=== PATIENT | male | born 1975 | race Caucasian/White ===

== ENCOUNTER 2017-09-17 12:30 | Outpatient (CLI) | payer MEDICAID ==
--- NOTE | 2017-09-17 20:56 | XRAY Report ---
EXAM: LUMBOSACRAL SPINE RADIOGRAPHY EXAM DATE: 09/17/2017 01:06 PM. CLINICAL HISTORY: CHRONIC LBP. COMPARISONS: None. TECHNIQUE: 3 views. FINDINGS: Alignment: Normal. No spondylolisthesis or scoliosis. Bones: 5 lumbar vertebrae. No fractures or bone lesions. Disks: Minimal disk space narrowing at L4-L5 and L5-S1. Other lumbar disk spaces well preserved. Facets: Mild degenerative changes at L4-L5 and L5-S1. Sacroiliac Joints: Unremarkable. Soft Tissues: Unremarkable. IMPRESSION: Mild lower lumbar degenerative changes. [facility] Referring Provider Line: [phone] SITE ID: [id number]
== END 2017-09-17 12:31 | disposition home or self-care (01) ==
LOC: DI 12:30
PROVIDERS: ATTEND Physician Assistant Medical
DX: M54.5 Low back pain (principal)
CPT/HCPCS: 72100

== ENCOUNTER 2018-07-10 12:07 | Outpatient (CLI) | payer MEDICAID | END 2018-07-10 12:08 | disposition home or self-care (01) | LOC: RT.N 12:07 | PROVIDERS: ATTEND Physician Assistant Medical | DX: Z79.899 Other long term (current) drug therapy (principal) | CPT/HCPCS: 93005 ==

== ENCOUNTER 2018-07-18 12:57 | Outpatient (CLI) | payer MEDICAID ==
[2018-07-18 13:22] LABS: BASOPHILS # (AUTO) 0.1 10^3/uL (0.0-0.1); BASOPHILS % (AUTO) 0.7 %; EOSINOPHILS # (AUTO) 0.1 10^3/uL (0.0-0.7); EOSINOPHILS % (AUTO) 1.7 %; HGB - HEMOGLOBIN 16.9 g/dL (14.0-18.0); LYMPHOCYTES # (AUTO) 2.3 10^3/uL (1.5-3.5); LYMPHOCYTES % (AUTO) 29.9 %; MEAN CORPUSCULAR HEMOGLOBIN 30.6 pg (27.0-31.0); MEAN CORPUSCULAR HGB CONC 33.3 g/dL (32.0-36.0); MEAN CORPUSCULAR VOLUME 91.7 fL (80.0-94.0); MEAN PLATELET VOLUME 8.9 fL (7.4-11.4); MONOCYTES # (AUTO) 0.7 10^3/uL (0.0-1.0); MONOCYTES % (AUTO) 9.2 %; NEUTROPHILS # (AUTO) 4.5 10^3/uL (1.5-6.6); NEUTROPHILS % (AUTO) 58.5 %; PLT - PLATELET COUNT 235 10^3/uL (130-450); RED BLOOD COUNT 5.53 10^6/uL (4.70-6.10); RED CELL DISTRIBUTION WIDTH 13.6 % (12.0-15.0); WHITE BLOOD COUNT 7.7 x10^3/uL (4.8-10.8)
== END 2018-07-18 12:58 | disposition home or self-care (01) ==
LOC: LAB 12:57
PROVIDERS: ATTEND Nurse Practitioner Psychiatric/Mental Health
DX: F25.1 Schizoaffective disorder, depressive type (principal)
CPT/HCPCS: 36415; 85025

== ENCOUNTER 2018-09-11 13:23 | Outpatient (CLI) | payer MEDICAID | END 2018-09-11 13:24 | disposition home or self-care (01) | LOC: SC 13:23 | PROVIDERS: ATTEND Internal Medicine Pulmonary Disease | DX: G47.10 Hypersomnia, unspecified (principal); R06.81 Apnea, not elsewhere classified; G47.8 Other sleep disorders; R41.89 Other symptoms and signs involving cognitive functions and awareness; R06.83 Snoring; E66.01 Morbid (severe) obesity due to excess calories; Z68.41 Body mass index [BMI] 40.0-44.9, adult; F17.210 Nicotine dependence, cigarettes, uncomplicated | CPT/HCPCS: 99203; 99212 ==

== ENCOUNTER 2018-10-10 19:29 | Outpatient (CLI) | payer MEDICAID | END 2018-10-10 19:30 | disposition home or self-care (01) | LOC: SC 19:29 | PROVIDERS: ATTEND Internal Medicine Pulmonary Disease | DX: G47.33 Obstructive sleep apnea (adult) (pediatric) (principal); G47.61 Periodic limb movement disorder | CPT/HCPCS: 95811 ==

== ENCOUNTER 2018-10-17 10:37 | Outpatient (CLI) | payer MEDICAID | END 2018-10-17 10:38 | disposition home or self-care (01) | LOC: SC 10:37 | PROVIDERS: ATTEND Nurse Practitioner Family | DX: G47.33 Obstructive sleep apnea (adult) (pediatric) (principal); G47.61 Periodic limb movement disorder | CPT/HCPCS: 99212; 99214 ==

== ENCOUNTER 2019-07-23 08:14 | Outpatient (CLI) | payer MEDICAID ==
--- NOTE | 2019-07-23 09:13 | SLEEP CARE CONSULTATION ---
Information from patient questionnaire entered by Sarah Calloway. I have reviewed and concur with the information entered by Sarah Calloway. This document represents the service I personally performed and the decisions made by me, Taylor Chicas, RN, MSN, [employer]. History of Present Illness Previous diagnosis: Very Severe, Obstructive Sleep Apnea-Hypopnea Syndrome AHI: 88.5 Reason for follow up: first compliance (set up 05/03/19), other (9 month fu) Equipment type: CPAP [facility] Mask style: Full face (F20) Mask brand: Resmed Backup mask available: No (Keep current mask when replaced as a spare ) Last cushion change: not since set up HPI additional information: There was a delay in getting set up . The first DME that prescription was sent to still had not set patient yet in November and his mother called and office staff here checked with DME to ensure all information there per progress note. Staff called again from here and [facility] was to call patient. This did not occur and patient mother called about 2 weeks later to transfer to [facility]. Then there was a delay from [facility] per progress notes and patient finally set up 05/03/19 per compliance report. CPAP Compliance Data - Data Reviewed with Patient Average duration of nightly device use: 7.25 (6.7 last 30) Compliance rate %: 83 (05/03-06/01)(47 for last 30) Current pressure setting (cmH2O): 17-20 Humidity settin Average residual AHI: 8.1 (3.3 last 30) Central apnea: 0.8 Obstructive apnea: 0.9 Hypopnea: 5.5 unknown Subjective Missed days of use due to: reports: other (mask leaks affecting CPAP use - stop ped using as reducing sleep ) Patient concerns: reports: air blowing in eyes (every night - affecting ability to go to sleep and maintain sleep. ), mask leak noise. denies: aerophagia, mask discomfort, condensation in mask/hose, dry mouth, nose, throat, epistaxis Observed to snore while using device: No Current pressure setting perceived as: too high On therapy, patient: reports: awakening more refreshed, being more awake and alert during the day, more rested overall Initial [place] Sleepiness Scale score: 11 Current [place] Sleepiness Scale score: 6 Allergies and Home Medications Known drug allergies: No Home medication list reviewed: Yes Allergy and home medication list: Abilify 20mg daily Seroquel 50mg daily Review of Systems Review of systems same as previous: Yes Physical Exam Blood Pressure: 136/100 (just smoked cigarette 30 minutes ago) Cuff size: long Heart Rate: 80 O2 Saturation: 96 Height: 6 ft 1 in Weight: 320 lb Weight change since last visit: gained 12 pounds Body Mass Index: 42.2 BMI Classification: Morbidly Obese Impression and Plan 1. Obstructive Sleep Apnea-Hypopnea Syndrome, very severe , with good treatment compliance the first 30 days but fell due to mask discomfort and leaks the last month. His residual AHI was elevated the first 30 days that appears to be due to large mask leaks. On CPAP therapy, the patient has better sleep quality and is more rested overall. Mask leaks can be reduced by washing mask daily instead of weekly. Changing mask cushions more frequently to improve mask seal and comfort but patient is only allowed one per 3 months . Additionally, mask leaks pred ominately from when patient sleeps on their side can be reduced by using a CPAP pillow. A CPAP pillow sample was shown. This and other styes can be purchased online. However, due to patient budget, he states he cannot afford so will modify one of his pillows. I also showed him how to adjust his mask slightly to reduce mask leaks into eyes. He states mask leaks start if pressure is raised above [id number]. So I will adjust pressure lower as well for comfort. In addition, he can buy a cloth eye mask to protect eyes until mask leaks controlled and use eye lubricant drops as needed. Also counseled to lose weight as it will increase apnea risk and CPAP pressure if continued as well as other medical problems. Portion control and health content discussed. A diet consult referral by PCP is advised. Patient's apnea severity and rationale for treatment to reduce apnea, improve sleep quality and reduce cardiovascular and cerebrovascular events was reviewed. I also reviewed the benefit of consistent device use of CPAP for hypertension, depression/anxiety. 2. Elevated Blood pressure. Today blood pressure was 136/100 initially with long cuff and later 132/100 with red large long cuff. He was counseled on the health risks of elevated blood pressure and advised to follow up with his PCP for further evaluation. He was also counseled on how his cigarette smoking can also increase his blood pressure. * * Change CPAP pressure to 16 cmH2O * Implement methods to reduce mask leaks and eye irritation. * Notify me if snoring with mask or feeling that the pressure is too much or too little * Attempt to lose weight * Follow up with PCP for further evaluation of elevated blood pressure / diet consultation. * Call this office if any problems using CPAP * Return for follow up in 2 months , or sooner if concerns arise Counseling Topics: Spare mask, Weight loss health impact, Discuss weight with PCP Time Spent with Patient (minutes): 40 I spent 100% of this visit face to face with the patient with greater than 50% of this was spent time counseling the patient and coordination of care.
[2019-07-23 09:14] VITALS: BP 136/100
== END 2019-07-23 08:15 | disposition home or self-care (01) ==
LOC: SC 08:14
PROVIDERS: ATTEND Nurse Practitioner Family
DX: G47.33 Obstructive sleep apnea (adult) (pediatric) (principal); E66.01 Morbid (severe) obesity due to excess calories; Z68.41 Body mass index [BMI] 40.0-44.9, adult; R03.0 Elevated blood-pressure reading, without diagnosis of hypertension; F17.210 Nicotine dependence, cigarettes, uncomplicated
CPT/HCPCS: 99212; 99215

== ENCOUNTER 2021-01-21 08:00 | Outpatient (CLI) | payer MEDICAID | END 2021-01-21 23:59 | disposition home or self-care (01) | LOC: LAB.N 08:00 | PROVIDERS: ATTEND Physician Assistant Medical | DX: J20.9 Acute bronchitis, unspecified (principal); Z20.822 Contact with and (suspected) exposure to COVID-19 ==

== ENCOUNTER 2023-08-29 08:18 | Outpatient (CLI) | payer BC ==
[2023-08-29 12:15] LABS: BASOPHILS # (AUTO) 0.1 10^3/uL (0.0-0.1); BASOPHILS % (AUTO) 0.6 %; EOSINOPHILS # (AUTO) 0.2 10^3/uL (0.0-0.7); EOSINOPHILS % (AUTO) 2.1 %; HCT - HEMATOCRIT 50.1 % (42.0-52.0); HGB - HEMOGLOBIN 16.3 g/dL (14.0-18.0); LYMPHOCYTES # (AUTO) 1.9 10^3/uL (1.5-3.5); LYMPHOCYTES % (AUTO) 18.1 %; MEAN CORPUSCULAR HEMOGLOBIN 30.3 pg (27.0-31.0); MEAN CORPUSCULAR HGB CONC 32.5 g/dL (32.0-36.0); MEAN CORPUSCULAR VOLUME 93.1 fL (80.0-94.0); MEAN PLATELET VOLUME 11.3 fL (7.4-11.4); MONOCYTES # (AUTO) 1.1 10^3/uL (0.0-1.0); MONOCYTES % (AUTO) 10.3 %; NEUTROPHILS # (AUTO) 7.2 10^3/uL (1.5-6.6); PLT - PLATELET COUNT 291 10^3/uL (130-450); RED BLOOD COUNT 5.38 10^6/uL (4.70-6.10); WHITE BLOOD COUNT 10.5 x10^3/uL (4.8-10.8)
[2023-08-29 12:30] LABS: ALBUMIN 4.2 g/dL (3.2-5.5); ALBUMIN/GLOBULIN RATIO 1.4 (1.0-2.2); ALKALINE PHOSPHATASE 71 IU/L (42-121); ALT ALANINE AMINOTRANSFERASE 39 IU/L (10-60); AST ASPARTATE AMINOTRANSFERASE 22 IU/L (10-42); BILIRUBIN,TOTAL 0.4 mg/dL (0.2-1.0); BUN - BLOOD UREA NITROGEN 13 mg/dL (6-20); CARBON DIOXIDE - CO2 31 mmol/L (21-32); CHLORIDE 100 mmol/L (101-111); CHOL/HDL RATIO 4.8 (<5.0); CHOLESTEROL 167 mg/dL; CREATININE 0.9 mg/dL (0.6-1.3); GFR - MDRD 91 (>89); GLUCOSE 127 mg/dL (74-104); HDL CHOLESTEROL 35 mg/dL; LDL CHOLESTEROL,CALCULATED 88 mg/dL; LDL/HDL RATIO 2.5 (<3.6); POTASSIUM 4.3 mmol/L (3.5-4.5); SODIUM 137 mmol/L (135-145); TOTAL PROTEIN 7.1 g/dL (6.4-8.9); TRIGLYCERIDES 218 mg/dL (48-352); VLDL CHOLESTEROL 44 mg/dL
[2023-08-29 12:39] LABS: THYROID STIMULATING HORMONE 2.29 uIU/mL (0.34-5.60)
[2023-08-29 12:49] LABS: ESTIMATED AVERAGE GLUCOSE 151 mg/dL (70-100); HEMOGLOBIN A1c% 6.9 % (4.27-6.07)
== END 2023-08-29 08:19 | disposition home or self-care (01) ==
LOC: LAB.N 08:18
PROVIDERS: ATTEND Physician Assistant
DX: R03.0 Elevated blood-pressure reading, without diagnosis of hypertension (principal); G47.30 Sleep apnea, unspecified; Z79.899 Other long term (current) drug therapy
CPT/HCPCS: 36415; 80053; 80061; 83036; 83721; 84443; 85025

== ENCOUNTER 2023-10-18 14:15 | Outpatient (CLI) | payer BC ==
[2023-10-18 17:42] LABS: BASOPHILS # (AUTO) 0.1 10^3/uL (0.0-0.1); BASOPHILS % (AUTO) 0.4 %; EOSINOPHILS # (AUTO) 0.1 10^3/uL (0.0-0.7); EOSINOPHILS % (AUTO) 0.5 %; HCT - HEMATOCRIT 48.4 % (42.0-52.0); HGB - HEMOGLOBIN 15.5 g/dL (14.0-18.0); LYMPHOCYTES # (AUTO) 1.9 10^3/uL (1.5-3.5); LYMPHOCYTES % (AUTO) 14.2 %; MEAN CORPUSCULAR HEMOGLOBIN 29.7 pg (27.0-31.0); MEAN CORPUSCULAR VOLUME 92.7 fL (80.0-94.0); MEAN PLATELET VOLUME 11.1 fL (7.4-11.4); MONOCYTES # (AUTO) 1.1 10^3/uL (0.0-1.0); MONOCYTES % (AUTO) 7.9 %; NEUTROPHILS # (AUTO) 10.3 10^3/uL (1.5-6.6); NEUTROPHILS % (AUTO) 76.6 %; PLT - PLATELET COUNT 294 10^3/uL (130-450); RED BLOOD COUNT 5.22 10^6/uL (4.70-6.10); RED CELL DISTRIBUTION WIDTH 13.4 % (12.0-15.0); WHITE BLOOD COUNT 13.5 x10^3/uL (4.8-10.8)
[2023-10-18 17:43] LABS: BILIRUBIN,URINE NEGATIVE (NEGATIVE); GLUCOSE, URINE (UA) NEGATIVE (NEGATIVE); KETONES,URINE (UA) NEGATIVE (NEGATIVE); LEUKOCYTE ESTERASE, URINE NEGATIVE (NEGATIVE); NITRITE,URINE NEGATIVE (NEGATIVE); OCCULT BLOOD,URINE NEGATIVE (NEGATIVE); PROTEIN,URINE NEGATIVE (NEGATIVE); UROBILINOGEN,URINE 0.2 (NORMAL) E.U./dL (NORMAL)
[2023-10-18 17:45] LABS: CLARITY,URINE CLEAR (CLEAR)
[2023-10-18 17:55] LABS: ALBUMIN 4.5 g/dL (3.2-5.5); ALBUMIN/GLOBULIN RATIO 1.5 (1.0-2.2); BILIRUBIN,TOTAL 0.6 mg/dL (0.2-1.0); CALCIUM 10.1 mg/dL (8.5-10.3); POTASSIUM 4.1 mmol/L (3.5-4.5); TOTAL PROTEIN 7.5 g/dL (6.4-8.9)
[2023-10-18 18:00] LABS: RBC,URINE 0-5 /HPF (0-5); WBC,URINE 0-3 /HPF (0-3)
[2023-10-18 18:01] LABS: BACTERIA,URINE None Seen /HPF (None Seen); SQUAMOUS EPITHELIAL CELL,UR NONE SEEN (<= Few)
== END 2023-10-18 14:30 | disposition home or self-care (01) ==
LOC: LAB.N 14:15
PROVIDERS: ATTEND Nurse Practitioner
DX: R10.9 Unspecified abdominal pain (principal)
CPT/HCPCS: 36415; 80053; 81001; 82150; 83690; 85025; 87086

== ENCOUNTER 2023-12-12 11:38 | Outpatient (CLI) | payer BC ==
[2023-12-12 18:13] LABS: CALCIUM 9.9 mg/dL (8.5-10.3); CREATININE 0.9 mg/dL (0.6-1.3); POTASSIUM 4.6 mmol/L (3.5-4.5)
== END 2023-12-12 11:39 | disposition home or self-care (01) ==
LOC: LAB.N 11:38
PROVIDERS: ATTEND Physician Assistant
DX: E11.65 Type 2 diabetes mellitus with hyperglycemia (principal); R03.0 Elevated blood-pressure reading, without diagnosis of hypertension
CPT/HCPCS: 36415; 80048